=== PATIENT | female | born 1990 | race Asian ===

== ENCOUNTER 2024-10-10 16:06 | Emergency (ER) | payer MEDICAID, SELFPAY ==
--- NOTE | 2024-10-10 16:11 | EDNOTE_ITS ---
ED General RME/HPI General Chief complaint: Nausea/Vomiting/Diarrhea Stated complaint: NAUSEA VOMITTING ABD PAIN Time Seen by Provider: 10/10/24 16:10 Arrival date/time: 10/10/24 16:06 CC: Nausea vomiting no diarrhea and headache HPI ongoing since noon today was dizzy earlier today. EMS reports stable vital signs en route. Patient is somewhat dramatic but denies chest pain shortness of breath or difficulty breathing. Patient states her started with a similar episodes 3 days ago, the diarrhea continues but the nausea vomiting has resolved. Patient currently denies any diarrhea. Related Data Previous Rx's ?Medication ?Instructions ?Recorded ondansetron 4 mg disintegrating 4 mg PO Q8H #10 tabs 0 10/10/24 tablet Allergies Allergy/AdvReac Type Severity Reaction Status Date / Time No Known Allergies Allergy Verified 02/28/19 04:38 Review of Systems Review of Systems Narrative Review of Systems: GEN: No fever, no chills, no weight loss EYES: No discharge, no visual changes, no pain HEENT: No ear pain, no congestion, no sore throat PULM: No shortness of breath, no cough, no congestion CV: No chest pain, no dyspnea on exertion, no palpitations GI: + nausea, + vomiting, no diarrhea, no pain, no constipation : No frequency, no urgency, no dysuria MUSC/SKEL: No joint pain, no back pain SKIN: No rash PSYCH: No hallucinations, no depression HEME/LYMPH: No easy bleeding or bruising tendencies NEURO: No weakness, + headache ED Exam Narrative Physical exam: [General: Obese on moderate discomfort but not in any acute distress Head normocephalic HEENT: Within acceptable limits Neck is supple nontender Chest equal chest rise nontender to palpation Respiratory: Clear to auscultation no wheezes crackles or rubs CV: Rate rhythm is regular no murmurs rubs or clicks Abdomen is distended secondary to body habitus soft nontender no masses positive bowel sounds all 4 quadrants Back: No CVA tenderness no spinous process tenderness from cervical spine thoracic and lumbar spine Skin: Intact no petechiae rash induration ulceration or crepitus Extremities: Moving all extremity against resistance cap refill less than 2 seconds neurosensory intact Neuro: Awake alert oriented x3 Glascow coma 15 no focal deficits] Course Quality Measures none Orders Category Date Time Status CT abdomen pelvis wo con Stat Exams 10/10/24 17:50 Completed CBC Stat Lab 10/10/24 16:39 Completed CMP [Comprehensive Metabolic Panel] Stat Lab 10/10/24 16:39 Completed Drug Screen,Urine Stat Lab 10/10/24 19:19 Received HCG Qualitative,Urine Stat Lab 10/10/24 19:19 Completed Urinalysis Stat Lab 10/10/24 19:19 Completed Meclizine HCl [Antivert] Med 10/10/24 19:31 Discontinued 25 mg PO X1 ONE Ondansetron Inj [Zofran Inj] Med 10/10/24 16:10 Discontinued 4 mg IV X1 ONE Sodium Chloride 0.9% 1000 ml [Ns] 1,000 ml Med 10/10/24 16:11 Discontinued IV 999 mls/hr Sodium Chloride 0.9% 1000 ml [Ns] 1,000 ml Med 10/10/24 19:32 Discontinued IV 999 mls/hr Vital Signs Vital signs: Vital Signs Temperature 97.2 F 10/10/24 16:14 Pulse Rate 69 10/10/24 16:14 Blood Pressure 142/106 H 10/10/24 16:14 Pulse Oximetry (%) 96 10/10/24 16:14 Oxygen Delivery Method Room Air 10/10/24 16:14 [facility] Patient data External records reviewed:: [facility] previous records and EMS form Clinical information provided by:: patient and EMS Social determinants that could affect healthcare access:: none Patient has the following chronic illnesses:: None How is presenting disease/condition affected by chronic disease/condition?: u neffected by Evaluation data The following diagnostics were reviewed and interpreted by me:: lab results Lab and/or radiology exams considered but not ordered:: COVID flu are negative. CBC shows a leukocytosis of 17.1 no anemia thrombocytopenia no bandemia. CMP shows no significant electrolyte imbalances renal impairment transaminitis or T. bili elevation Urine is turbid, no signs of infection Urine is negative CT of the abdomen shows a left pelvic cyst. Interpretation Summary: Reassessment this patient at 2200, the patient is awake alert tolerating food not in any acute distress with no active vomiting. I suspect this is viral in nature and CT shows an incidental pelvic cyst versus mass that needs follow-up on outpatient basis. Patient was informed we will discharge the patient home with nausea medicine to follow-up with a primary care provider. Medications Medications considered but not ordered:: None Medication administrations:: Medication Administration History Discontinued Medications Sodium Chloride (Ns) 1,000 mls @ 999 mls/hr IV .Q1H1M ONE Stop: 10/10/24 17:11 Last Infusion: 10/10/24 19:14 Dose: Infused Documented By: Admin: 10/10/24 17:13 Dose: 999 mls/hr Documented By: GERONIMO Sodium Chloride (Ns) 1,000 mls @ 999 mls/hr IV .Q1H1M ONE Stop: 10/10/24 20:32 Last Admin: 10/10/24 19:45 Dose: 999 mls/hr Documented By: TALIA Meclizine HCl (Meclizine Hcl 25 Mg Tablet) 25 mg PO X1 ONE Stop: 10/10/24 19:32 Last Admin: 10/10/24 19:45 Dose: 25 mg Documented By: TALIA Ondansetron HCl (Ondansetron Inj 2 Mg/Ml Inj 2 Ml) 4 mg IV X1 ONE; Protocol Stop: 10/10/24 16:11 Last Admin: 10/10/24 17:11 Dose: 4 mg Documented By: GERONIMO None Consultations Consultation(s) initiated? (list below): No Diagnosis Differential Diagnosis ED Complaint MDM: Nausea vomiting diarrhea Most likely diagnosis given after review of the tests above:: Nausea vomiting diarrhea Admission Indicated Admission indicated?: not indicated Explain why admission is indicated or not indicated:: Stable for discharge Admission Request Was there a request for admission?: No Disposition Plan Disposition Plan: Discharge Discharge Attestation Discharge Attestation: The patient and all family members were given an opportunity to ask questions and understood the discharge instructions. Discharge instructions specifically effects, indications for sooner follow up or return to the emergency department, and the expected course of current diagnosis. Patient condition: Stable Medical Decision Making Differential Diagnosis Differential Diagnosis: Nausea vomiting diarrhea Lab Data 10/10/24 16:39 10/10/24 16:39 Labs: Lab Results 10/10/24 10/10/24 Range/Units 16:39 19:19 WBC 17.1 H (3.6-11.0) Thou/mm3 RBC 4.49 (4.00-5.20) Miln/mm3 Hgb 13.6 (12.0-16.0) g/dL Hct 39.0 (36.0-46.0) % MCV 87 (80-100) fL MCH 30.3 (25.0-35.0) pg MCHC 34.9 (31.0-37.0) g/dl RDW Std Deviation 39.3 (36.4-46.3) fL Plt Count 336 (140-440) Thou/mm3 Neut % (Auto) 85 H (37-80) % Lymph % (Auto) 9 L (10-50) % [place] % (Auto) 3 (0-12) % Eos % (Auto) 2 (0-10) % Baso % (Auto) 1 (0-2.5) % Neut # (Auto) 14.5 H (1.8-7.7) Thou/mm3 Lymph # (Auto) 1.5 (1.0-4.8) Thou/mm3 [place] # (Auto) 0.5 (0.0-0.8) Thou/mm3 Eos # (Auto) 0.3 (0.0-0.5) Thou/mm3 Baso # (Auto) 0.1 (0.0-0.2) Thou/mm3 Immature Gran # (Auto) 0.09 H (0.00-0.00) Thou/mm3 Absolute Nucleated RBC 0.00 (0.00-0.00) Thou/mm3 Immature Gran % 1 H (0-0) % Nucleated RBC % 0 (0) /100 WBC Sodium 141 (136-145) mMol/L Potassium 3.7 (3.4-5.1) mMol/L Chloride 105 (98-107) mMol/L Carbon Dioxide 27.0 (20.0-31.0) mMol/L Anion Gap 9 (7-16) BUN 10 (9-23) mg/dL Creatinine 0.6 (0.6-1.3) mg/dL Estim Creat Clear Calc 135.3 (>60) mL/min eGFR > 60 (60 - ) See Note BUN/Creatinine Ratio 17 (12-20) Ratio Glucose 94 (74-106) mg/dL Calculated Osmolality 280 (275-295) Calcium 9.2 (8.3-10.6) mg/dL Corrected Calcium 9.2 (8.5-10.1) mg/dL Total Bilirubin 0.6 (0.3-1.2) mg/dL AST 14 (0-34) U/L ALT 18 (10-49) U/L Alkaline Phosphatase 65 (46-116) U/L Total Protein 7.5 (5.7-8.2) gm/dL Albumin 4.6 (3.5-5.0) gm/dL Globulin 2.9 (2.3-3.5) gm/dL Albumin/Globulin Ratio 1.6 (1.2-2.2) Ur Collection Type Clean Catch Urine Color Lt-Yellow (Lt Yel-Yel) Urine Clarity Turbid A (Clear/Hazy) Urine pH 7.0 (5.0-7.0) Ur Specific [place] 1.013 (1.001-1.035) Urine Protein Negative (Neg - Trace) Urine Glucose (UA) Negative (Negative) Urine Ketones Negative (Negative) Urine Blood Negative (Negative) Urine Nitrite Negative (Negative) Urine Bilirubin Negative (Negative) Urine Urobilinogen (Auto) Negative (0.0-1.0) mg/dL Ur Leukocyte Esterase Negative (Negative) Urine RBC 1 (0-3) /hpf Urine WBC 1 (0-5) /hpf Ur Squamous Epith Cells 9 H (0-5) /hpf Urine Bacteria None (None) Urine HCG, Qual Negative Discharge Plan Plan Patient Disposition: HOME (Self Care) Patient condition on transfer: Stable Prescriptions/Referrals Prescriptions/Med Rec: New ondansetron 4 mg tablet,disintegrating 4 mg PO Q8H Qty: 10 0RF Referrals: Fermín Recinos MD [Physician] - In 1 week No Primary/Family,Physician [Primary Care Provider] - In 1 week Problem List Clinical Impression: Nausea & vomiting, Pelvic cyst Patient/Caregiver Discharge Instructions Other Activity Instructions:: Rest take the medication for nausea bland diet. You have a pelvic cyst that requires follow-up in several weeks with your PCP. Education Materials: Nausea Vomit Control-Cancer Care, Self-Care for Vomiting and Diarrhea Print Language: Portuguese Stand Alone Forms: Slime Award Info., Work/School Release, Patient Portal Info Letter PA/[employer] MANAGER Supervising Physician PA/[employer] MANAGER Supervising Physician: Wagner Salazar ENP
[2024-10-10 16:14] VITALS: BP 142/106; PULSE 69; TEMP 36.2; O2SAT 96
[2024-10-10 16:38] VITALS: PULSE 74; O2SAT 100; BMI 29.2
[2024-10-10 16:56] LABS: Basophils # (Auto) 0.1 Thou/mm3 (0.0-0.2); Basophils % (Auto) 1 % (0-2.5); Eosinophils # (Auto) 0.3 Thou/mm3 (0.0-0.5); Eosinophils % (Auto) 2 % (0-10); Hemoglobin 13.6 g/dL (12.0-16.0); Immature Granulocytes % (Auto) 1 % (0-0); Immature Granulocytes Auto 0.09 Thou/mm3 (0.00-0.00); Lymphocytes # (Auto) 1.5 Thou/mm3 (1.0-4.8); Lymphocytes % (Auto) 9 % (10-50); Mean Corpuscular HGB Conc 34.9 g/dl (31.0-37.0); Mean Corpuscular Hemoglobin 30.3 pg (25.0-35.0); Mean Corpuscular Volume 87 fL (80-100); Monocytes # (Auto) 0.5 Thou/mm3 (0.0-0.8); Monocytes % (Auto) 3 % (0-12); Neutrophils # (Auto) 14.5 Thou/mm3 (1.8-7.7); Neutrophils % (Auto) 85 % (37-80); Nucleated Red Blood Cell % 0 /100 WBC (0); Platelet Count 336 Thou/mm3 (140-440); RDW Standard Deviation 39.3 fL (36.4-46.3); Red Blood Count 4.49 Miln/mm3 (4.00-5.20); White Blood Count 17.1 Thou/mm3 (3.6-11.0)
[2024-10-10] MEDS: ONDANSETRON INJ 2 MG/ML INJ 2 ML 4 MG IV (17:11)
[2024-10-10] MEDS: SODIUM CHLORIDE 0.9% 1000 ML 1,000 ML 999 ML IV ×2 (17:13→19:45)
[2024-10-10 17:15] LABS: Alanine Aminotransferase 18 U/L (10-49); Albumin, Serum 4.6 gm/dL (3.5-5.0); Albumin/Globulin Ratio 1.6 (1.2-2.2); Alkaline Phosphatase 65 U/L (46-116); Anion Gap 9 (7-16); Aspartate Amino Transferase 14 U/L (0-34); BUN/Creatinine Ratio 17 Ratio (12-20); Bilirubin,Total 0.6 mg/dL (0.3-1.2); Blood Urea Nitrogen 10 mg/dL (9-23); Calcium 9.2 mg/dL (8.3-10.6); Calcium (Corrected) 9.2 mg/dL (8.5-10.1); Chloride 105 mMol/L (98-107); Creatinine (Component) 0.6 mg/dL (0.6-1.3); Estimated Creatinine Clearance 135.3 mL/min (>60); Globulin 2.9 gm/dL (2.3-3.5); Glucose 94 mg/dL (74-106); Osmolality,Calculated 280 (275-295); Potassium 3.7 mMol/L (3.4-5.1); Sodium 141 mMol/L (136-145); Total Protein 7.5 gm/dL (5.7-8.2); eGFR > 60 See Note
[2024-10-10 17:28] VITALS: BP 131/94; PULSE 83; RESP 19; O2SAT 97
--- NOTE | 2024-10-10 17:50 | XR_ITS ---
Examination: CT abdomen and pelvis without contrast. Coronal 3-D reconstructions. Sagittal 2-D reconstructions. Date and time of exam:October 10, 20246 hrs. Indications: Abdominal pain with nausea vomiting diarrhea today CTDI: vol (mGy): 8.27 DLP: (mGycm): 494 Technique: Axial images of the abdomen have been obtained, 3 mm slice thickness Intravenous contrast material has not been administered. Low dose protocols were performed. One or more of the following dose reduction techniques were used; automated exposure control, adjustment of the mA and/or KV according to patient size, use of iterative reconstruction technique. Findings: No focal liver or splenic lesions No gallstones No pancreatic or adrenal mass No renal or ureteral calculi, no hydronephrosis Aorta normal size No bowel obstruction Normal appendix No diverticulitis Anterior left pelvic hypodense mass 34 mm axial image 183 No uterine mass Urinary bladder intact Impression: Recommend pelvic sonography follow-up to confirm 34 mm left pelvic mass versus cyst
[2024-10-10 18:22] VITALS: BP 123/93; PULSE 80; RESP 21; TEMP 36.6; O2SAT 96
[2024-10-10 19:28] LABS: Collection Type, Urine Clean Catch
[2024-10-10 19:34] LABS: Bilirubin,Urine Negative (Negative); Blood,Urine Negative (Negative); Clarity,Urine Turbid (Clear/Hazy); Color,Urine Lt-Yellow (Lt Yel-Yel); Glucose, Urine Negative (Negative); Ketones,Urine Negative (Negative); Leukocyte Esterase,Urine Negative (Negative); Nitrite,Urine Negative (Negative); Protein,Urine Negative (Neg - Trace); RBC,Urine 1 /hpf (0-3); Specific Gravity,Urine 1.013 (1.001-1.035); Squamous Epithelial Cell,Urine 9 /hpf (0-5); Urobilinogen,Urine Negative mg/dL (0.0-1.0); WBC,Urine 1 /hpf (0-5)
[2024-10-10] MEDS: MECLIZINE HCL 25 MG TABLET PO (19:45)
[2024-10-10 19:53] LABS: HCG Qualitative,Urine Negative
[2024-10-10 22:07] VITALS: BP 126/81; PULSE 86; RESP 17; TEMP 36.7; O2SAT 99
[2024-10-10 23:20] LABS: Amphetamine/Methamp Scrn,U Negative (Negative); Barbiturate Screen,Urine Negative (Negative); Benzodiazepines Screen,Urine Negative (Negative); Benzoylecgonine Screen, Ur Negative (Negative); Fentanyl Screen,Urine Negative (Negative); Opiate Screen,Urine Negative (Negative); THC Screen,Urine Positive (Negative)
== END 2024-10-10 22:08 | disposition home or self-care (01) ==
PROVIDERS: Registered Nurse General Practice; Emergency Provider Emergency Medicine
DX: N94.89 Other specified conditions associated with female genital organs and menstrual cycle (principal)
CPT/HCPCS: 36415; 74176; 80053; 80307; 81001; 81025; 85025; 87400; 87811; 96361; 96374; 99284; J2405; J7030; A9270